=== PATIENT | male | born 1980 | race Caucasian/White ===

== ENCOUNTER 2017-02-06 09:38 | Emergency (ER) | payer SELFPAY ==
--- NOTE | 2017-02-06 10:00 | EDM.PDOC ---
ED HPI GENERAL MEDICAL PROBLEM - General Chief Complaint: Respiratory Problem Stated Complaint: CONGESTION Time Seen by Provider: 02/06/17 09:59 Source of Information: Reports: Patient - History of Present Illness INITIAL COMMENTS - FREE TEXT/NARRATIVE: HISTORY AND PHYSICAL: History of present illness: [] Patient presents with cough for 2 weeks along with nasal congestion worsening over the last 3-4 days, he now complains of burning pain in his chest while coughing he does have smoking history no fever nausea vomiting chills sweats no chest pain shortness breath headache dizziness or palpitation Review of systems: As per history of present illness and below otherwise all systems reviewed and negative. Past medical history: As per history of present illness and as reviewed below otherwise noncontributory. Surgical history: As per history of present illness and as reviewed below otherwise noncontributory. Social history: No reported history of drug or alcohol abuse. Family history: As per history of present illness and as reviewed below otherwise noncontributory. Physical exam: HEENT: Atraumatic, normocephalic, pupils reactive, negative for conjunctival pallor or scleral icterus, mucous membranes moist, throat clear, neck supple, nontender, trachea midline. Nares are patent possible polyp left and there Lungs: Clear to auscultation, breath sounds equal bilaterally, chest nontender. Heart: S1S2, regular, negative for clicks, rubs, or JVD. Abdomen: Soft, nondistended, nontender. Negative for masses or hepatosplenomegaly. Negative for costovertebral tenderness. Pelvis: Stable nontender. Genitourinary: Deferred. Rectal: Deferred. Extremities: Atraumatic, negative for cords or calf pain. Neurovascular unremarkable. Neuro: Awake, alert, oriented. Cranial nerves II through XII unremarkable. Cerebellum unremarkable. Motor and sensory unremarkable throughout. Exam nonfocal. Diagnostics: [] Chest 2 views Therapeutics: [] DuoNeb Solu-Medrol 125 mg IM Z-Phi 250 mg HFA Flonase Impression: [] Acute bronchitis Question nasal polyp left there Definitive disposition and diagnosis as appropriate pending reevaluation and review of above. - Related Data Allergies Allergy/AdvReac Type Severity Reaction Status Date / Time No Known Allergies Allergy Verified 02/06/17 09:59 Home Meds: Home Meds . [No Known Home Meds] 02/06/17 [History] ED ROS GENERAL - Review of Systems Review Of Systems: ROS reveals no pertinent complaints other than HPI. ED EXAM, GENERAL - Physical Exam Exam: See Below Course - Vital Signs Last Recorded V/S: Last Vital Signs Temp 36.3 C 02/06/17 09:59 Pulse 85 02/06/17 09:59 Resp 18 02/06/17 09:59 BP 115/78 02/06/17 09:59 Pulse Ox 98 02/06/17 09:59 - Orders/Labs/Meds Orders: Active Orders 24 hr Category Date Time Status RT Aerosol Therapy [RC] ASDIRECTED Care 02/06/17 10:03 Active Chest 2V [CR] Stat Exams 02/06/17 10:03 Taken Meds: Medications Discontinued Medications Generic Name Dose Route Start Last Admin Trade Name Freq PRN Reason Stop Dose Admin Albuterol/Ipratropium 3 ml 02/06/17 10:03 02/06/17 10:16 Duoneb 3.0-0.5 Mg/3 Ml NEB 02/06/17 10:04 3 ml ONETIME ONE Administration Methylprednisolone Sodium Succinate 125 mg 02/06/17 10:03 02/06/17 10:13 Solu-Medrol IM 02/06/17 10:04 125 mg ONETIME ONE Administration Departure - Departure Time of Disposition: 10:55 Disposition: Home, Self-Care 01 Condition: good Clinical Impression: Acute bronchitis - Discharge Information Forms: ED Department Discharge Additional Instructions: Medications as prescribed Return if symptoms persist or worsen Claritin [id number] 10 mg daily may benefit Return if symptoms persist or worsen He may have a nasal polyp in the left nare, currently there is a lot of swelling and inflammation which makes is difficult to discern Followup with ENT may be beneficial [facility] - ENT [address] [place] [id number] The following information is given to patients seen in the emergency department who are being discharged to home. This information is to outline your options for follow-up care. We provide all patients seen in our emergency department with a follow-up referral. The need for follow-up, as well as the timing and circumstances, are variable depending upon the specifics of your emergency department visit. If you don't have a primary care physician on staff, we will provide you with a referral. We always advise you to contact your personal physician following an emergency department visit to inform them of the circumstance of the visit and for follow-up with them and/or the need for any referrals to a consulting specialist. The emergency department will also refer you to a specialist when appropriate. This referral assures that you have the opportunity for follow-up care with a specialist. All of these measure are taken in an effort to provide you with optimal care, which includes your follow-up. Under all circumstances we always encourage you to contact your private physician who remains a resource for coordinating your care. When calling for follow-up care, please make the office aware that this follow-up is from your recent emergency room visit. If for any reason you are refused follow-up, please contact the [facility] emergency department at and asked to speak to the emergency department charge nurse. - My Orders Last 24 Hours: My Active Orders 02/06/17 10:03 RT Aerosol Therapy [RC] ASDIRECTED Chest 2V [CR] Stat - Assessment/Plan Last 24 Hours: My Active Orders 02/06/17 10:03 RT Aerosol Therapy [RC] ASDIRECTED Chest 2V [CR] Stat
[2017-02-06] MEDS ORDERED: methylPREDNISolone Sodium Succinate 125 MG/2 ML SDV IM ONE (10:03)
[2017-02-06] MEDS ORDERED: Albuterol/Ipratropium 3.0-0.5 MG/3 ML Neb Soln NEB ONE (10:03)
--- NOTE | 2017-02-06 11:24 | CR ---
EXAM DATE: 02/06/17 PATIENT'S AGE: 36 Patient: LINDY BLOCK Facility: [place], [place] Site . Site : 1980 Study: XRay Chest [id number]/2/2017 10:49:37 AM Ordering Physician: Humberto Javier Final Report: INDICATION: Pain/shortness of breath. Been having cough and hoarseness for 2 weeks. 2 View Chest. Findings: The lungs are clear. Pulmonary vascularity, mediastinum and cardiac silhouette are within normal limits. No effusions and no pneumothorax. Osseous structures appear unremarkable. Impression: No evidence of acute cardiopulmonary disease. Dictated by: Garrison Gautam MD @ 02/06/2017 10:58:08 (Electronic Signature) Report Signed by Proxy. LANG
[2017-02-06 11:45] VITALS: BP 111/73
== END 2017-02-06 11:14 | disposition home or self-care (01) ==
LOC: MW.ED 09:38
DX: J20.9 Acute bronchitis, unspecified (principal)
CPT/HCPCS: 71020; 94664; 99283; J2930